=== PATIENT | male | born 1965 | race Native Hawaiian/Other Pacific Islander ===

== ENCOUNTER 2016-08-06 12:18 | Outpatient (CLI) | payer OTHER ==
[2016-08-06 12:38] LABS: PLATELET COUNT 243 K/uL (142-355)
[2016-08-06 12:53] LABS: POTASSIUM 3.9 mmol/L (3.6-5.2); SODIUM 137 mmol/L (136-145)
== END 2016-08-06 19:30 | disposition home or self-care (01) ==
LOC: LABW 12:18
PROVIDERS: Nurse Practitioner
DX: R10.32 Left lower quadrant pain (principal)
CPT/HCPCS: 36415; 80053; 81000; 85027; 85651; 86140; Q9963

== ENCOUNTER 2016-08-06 16:09 | Outpatient (CLI) | payer OTHER | END 2016-08-06 19:33 | disposition home or self-care (01) | LOC: CT 16:09 | DX: R10.32 Left lower quadrant pain (principal) | CPT/HCPCS: Q9963 ==

== ENCOUNTER 2017-05-27 07:50 | Outpatient (CLI) | payer OTHER | END 2017-05-27 17:00 | disposition home or self-care (01) | LOC: CT 07:50 | DX: R06.09 Other forms of dyspnea (principal) | CPT/HCPCS: 36415; 82565; 84520; Q9963 ==

== ENCOUNTER 2017-06-05 07:24 | Day surgery (SDC) | payer OTHER ==
[~2017-06-05] VITALS: Ht 30.5 cm; Wt 0.5 kg
== END 2017-06-05 10:05 | disposition home or self-care (01) ==
LOC: OR 07:24
PROC: 0DB68ZZ Excision of Stomach, Via Natural or Artificial Opening Endoscopic (ICD-10-PCS; principal; 2017-06-05)
DX: K44.9 Diaphragmatic hernia without obstruction or gangrene (principal); K29.50 Unspecified chronic gastritis without bleeding; R10.13 Epigastric pain; Z87.898 Personal history of other specified conditions
CPT/HCPCS: J2001; J2250; J2704

== ENCOUNTER 2017-06-21 09:59 | Outpatient (CLI) | payer OTHER | END 2017-06-21 21:18 | disposition home or self-care (01) | LOC: LABW 09:59 | DX: R53.83 Other fatigue (principal) | CPT/HCPCS: 36415; 82670; 83001; 83002 ==

== ENCOUNTER 2017-06-22 15:31 | Outpatient (CLI) | payer OTHER | END 2017-06-22 21:34 | disposition home or self-care (01) | LOC: LAB 15:31 | DX: R53.83 Other fatigue (principal) | CPT/HCPCS: 82175 ==

== ENCOUNTER 2018-04-10 13:53 | Outpatient (CLI) | payer BC | END 2018-04-10 23:00 | disposition home or self-care (01) | LOC: RAD 13:53 | DX: J20.9 Acute bronchitis, unspecified (principal) ==

== ENCOUNTER 2018-06-02 10:38 | Outpatient (CLI) | payer BC ==
[2018-06-02 11:28] LABS: PLATELET COUNT 261 K/uL (142-355)
[2018-06-02 11:38] LABS: POTASSIUM 4.6 mmol/L (3.6-5.2); SODIUM 141 mmol/L (136-145)
== END 2018-06-02 21:07 | disposition home or self-care (01) ==
LOC: LABW 10:38
PROVIDERS: Internal Medicine Gastroenterology
DX: R53.83 Other fatigue (principal); R73.9 Hyperglycemia, unspecified
CPT/HCPCS: 36415; 80053; 83036; 84443; 85027

== ENCOUNTER 2018-12-11 17:56 | Outpatient (CLI) | payer BC | END 2018-12-11 22:18 | disposition home or self-care (01) | LOC: CT 17:56 | DX: R41.3 Other amnesia (principal) ==